=== PATIENT | male | born 1960 | race Caucasian/White ===

== ENCOUNTER 2023-07-07 18:47 | Inpatient (IN) | payer MEDICARE, MEDICAID ==
[~2023-07-07] VITALS: Ht 177.8 cm; Wt 90.0 kg
[2023-07-07 19:49] LABS: HEMATOCRIT 44.7 % (42.0-52.0); HEMOGLOBIN 15.2 g/dl (13.5-17.5); PLATELET COUNT, AUTOMATED 207 10^3/uL (150-450); RED BLOOD COUNT 4.91 10^6/uL (4.30-6.10); WHITE BLOOD COUNT 8.1 10^3/uL (4.0-10.0)
[2023-07-07 20:11] LABS: PHENCYCLIDINE URINE NEGATIVE (NEGATIVE)
[2023-07-07 20:12] LABS: AMPHETAMINES LEVEL URINE NEGATIVE (NEGATIVE); BARBITURATES URINE NEGATIVE (NEGATIVE); BENZODIAZEPINES URINE NEGATIVE (NEGATIVE); CANNABINOIDS URINE NEGATIVE (NEGATIVE); COCAINE METABOLITE URINE NEGATIVE (NEGATIVE); METHADONE URINE NEGATIVE (NEGATIVE); OPIATES URINE NEGATIVE (NEGATIVE)
[2023-07-07 20:13] LABS: ETHYL ALCOHOL (ETHANOL) < 0.003 % (0.000-0.010)
[2023-07-07 20:14] LABS: ACETAMINOPHEN LEVEL < 2.0 UG/ML (10.0-20.0); SALICYLATE LEVEL < 3.0 MG/DL (<30)
[2023-07-07 20:17] LABS: THYROID STIMULATING HORMONE 0.456 uIU/ML (0.55-4.78)
[2023-07-07 20:23] LABS: ALBUMIN 3.5 G/DL (3.2-5.2); ALKALINE PHOSPHATASE 129 U/L (46-116); ALT/SGPT 13 U/L (7.0-40); AST/SGOT < 8 U/L (<34); BILIRUBIN,DIRECT < 0.1 MG/DL (<0.4); BILIRUBIN,TOTAL 0.3 MG/DL (0.3-1.2); BLOOD UREA NITROGEN 13 MG/DL (9-23); CALCIUM LEVEL 9.1 MG/DL (8.3-10.6); CARBON DIOXIDE LEVEL 23 MMOL/L (20-31); CHLORIDE LEVEL 101 MMOL/L (98-107); CREATININE FOR GFR 0.63 MG/DL (0.70-1.30); GLOMERULAR FILTRATION RATE > 60.0 (>49); GLUCOSE, FASTING 428 MG/DL (74-106); POTASSIUM SERUM 4.3 MMOL/L (3.5-5.1); SODIUM LEVEL 134 MMOL/L (136-145); TOTAL PROTEIN 6.3 G/DL (5.7-8.2)
[2023-07-07] MEDS ORDERED: RISP-10 PO (20:55)
[2023-07-07] MEDS ORDERED: HOME MED LIST COMPLETE! XX SCH (20:55)
[2023-07-07] MEDS ORDERED: BENZ0.5T2 PO (20:55)
[2023-07-07] MEDS ORDERED: INSULIN LISPRO (NovoLOG) PER UNIT SC ONE (22:40)
[2023-07-07] MEDS ORDERED: MAALOX 30 ML SUSP *UDC PO PRN (22:45)
[2023-07-07] MEDS ORDERED: diphenhydrAMINE 25MG CAP PO PRN (22:45)
[2023-07-07] MEDS ORDERED: OLANZapine ORAL DISINTEGRATING TAB 5MG PO PRN (22:45)
[2023-07-07] MEDS ORDERED: traZODone 50 MG TAB PO PRN (22:45)
[2023-07-07] MEDS ORDERED: MOM 30ML SUSPENSION UDC PO PRN (22:45)
[2023-07-08] MEDS ORDERED: GLUCOSE 4GM CHEW TABLET PO PRN (00:45)
[2023-07-08] MEDS ORDERED: DEXTROSE 50% 50ML SYRINGE IV PRN (00:45)
[2023-07-08] MEDS ORDERED: GLUCAGON INJ 1MG VIAL SC PRN (00:45)
[2023-07-08 02:35] VITALS: BP 123/63; TEMP 98.3; O2SAT 96
[2023-07-08 06:20] VITALS: BP 141/76; TEMP 97.7; O2SAT 100
[2023-07-08] MEDS: INSULIN LISPRO (NovoLOG) PER UNIT SC SCH ×5 (06:35→21:25)
[2023-07-08] MEDS: NICOTINE 14 MG/24 HR TRANSDERMAL TD SCH (09:00)
[2023-07-08] MEDS: risperiDONE 3 MG TAB PO SCH ×2 (13:40→21:16)
[2023-07-08] MEDS: BENZTROPINE 0.5 MG TAB PO SCH ×2 (13:40→21:16)
[2023-07-08 15:13] VITALS: BP 126/68; TEMP 97.3; O2SAT 98
[2023-07-08] MEDS: lisinopriL 5 MG TAB PO SCH (15:16)
[2023-07-08] MEDS: ATORVASTATIN 20 MG TAB PO SCH (15:16)
[2023-07-08] MEDS: LEVEMIR (INSULIN DETEMIR) 1 UNITS/0.01ML SC SCH ×2 (15:17→21:24)
[2023-07-09 06:14] VITALS: BP 110/69; TEMP 97.9; O2SAT 99
[2023-07-09] MEDS: INSULIN LISPRO (NovoLOG) PER UNIT SC SCH ×7 (06:49→20:48)
[2023-07-09 08:01] LABS: CHOLESTEROL RISK RATIO 3.85 (<5); HDL CHOLESTEROL 50.9 MG/DL (>40); LDL CHOLESTEROL 121.9 MG/DL (<100); NON-HDL-C 145.1 MG/DL
[2023-07-09] MEDS: risperiDONE 3 MG TAB PO SCH ×2 (08:33→20:47)
[2023-07-09] MEDS: BENZTROPINE 0.5 MG TAB PO SCH ×2 (08:33→20:47)
[2023-07-09] MEDS: SITagliptin 50 MG TAB (JANUVIA) PO SCH (08:33)
[2023-07-09] MEDS: lisinopriL 5 MG TAB PO SCH (08:33)
[2023-07-09] MEDS: ATORVASTATIN 20 MG TAB PO SCH (08:33)
[2023-07-09] MEDS: LEVEMIR (INSULIN DETEMIR) 1 UNITS/0.01ML SC SCH ×2 (08:34→20:48)
[2023-07-09] MEDS: NICOTINE 14 MG/24 HR TRANSDERMAL TD SCH (08:40)
[2023-07-09 17:53] VITALS: BP 142/75; TEMP 97.2; O2SAT 95
[2023-07-09] MEDS: IBUPROFEN 400MG TAB PO PRN (21:33)
[2023-07-10 06:25] VITALS: BP 122/69; TEMP 98; O2SAT 99
[2023-07-10] MEDS: INSULIN LISPRO (NovoLOG) PER UNIT SC SCH ×5 (07:01→19:58)
[2023-07-10] MEDS: NICOTINE 14 MG/24 HR TRANSDERMAL TD SCH (08:00)
[2023-07-10 08:02] VITALS: BP 123/66
[2023-07-10] MEDS: lisinopriL 5 MG TAB PO SCH (08:04)
[2023-07-10] MEDS: BENZTROPINE 0.5 MG TAB PO SCH ×2 (08:04→20:00)
[2023-07-10] MEDS: risperiDONE 3 MG TAB PO SCH ×2 (08:04→20:00)
[2023-07-10] MEDS: SITagliptin 50 MG TAB (JANUVIA) PO SCH (08:04)
[2023-07-10] MEDS: ATORVASTATIN 20 MG TAB PO SCH (08:04)
[2023-07-10] MEDS: LEVEMIR (INSULIN DETEMIR) 1 UNITS/0.01ML SC SCH ×2 (08:06→20:00)
[2023-07-10] MEDS: DAPAGLIFLOZIN PROPANEDIOL 10MG TABLET (FARXIGA) PO SCH (12:19)
[2023-07-10] MEDS: glipiZIDE (GLUCOTROL) 5 MG TAB PO SCH (17:20)
[2023-07-10 19:02] VITALS: BP 107/67; TEMP 97.1
[2023-07-10] MEDS: IBUPROFEN 400MG TAB PO PRN (22:43)
[2023-07-11] MEDS: INSULIN LISPRO (NovoLOG) PER UNIT SC SCH ×4 (06:52→20:21)
[2023-07-11] MEDS: glipiZIDE (GLUCOTROL) 5 MG TAB PO SCH ×2 (06:52→16:39)
[2023-07-11 06:55] VITALS: BP 130/68; TEMP 97.2; O2SAT 95
[2023-07-11] MEDS: NICOTINE 14 MG/24 HR TRANSDERMAL TD SCH (08:30)
[2023-07-11] MEDS: ATORVASTATIN 20 MG TAB PO SCH (08:37)
[2023-07-11] MEDS: BENZTROPINE 0.5 MG TAB PO SCH ×2 (08:37→20:22)
[2023-07-11] MEDS: risperiDONE 3 MG TAB PO SCH ×2 (08:38→20:22)
[2023-07-11] MEDS: DAPAGLIFLOZIN PROPANEDIOL 10MG TABLET (FARXIGA) PO SCH (08:38)
[2023-07-11] MEDS: SITagliptin 50 MG TAB (JANUVIA) PO SCH (08:38)
[2023-07-11] MEDS: lisinopriL 5 MG TAB PO SCH (08:38)
[2023-07-11] MEDS: LEVEMIR (INSULIN DETEMIR) 1 UNITS/0.01ML SC SCH ×2 (08:39→20:21)
[2023-07-11] MEDS: IBUPROFEN 400MG TAB PO PRN ×2 (08:52→19:12)
[2023-07-11] MEDS ORDERED: PALIPERIDONE PAL 234MG/1.5ML INJ (INVEGA)(FREE PSY INPT ONLY) IM ONE (09:00)
[2023-07-11 18:08] VITALS: BP 103/59; TEMP 96.9; O2SAT 100
[2023-07-11] MEDS: ACETAMINOPHEN TAB 650MG DOSE (2X325MG) PO PRN (21:22)
[2023-07-12] MEDS: glipiZIDE (GLUCOTROL) 5 MG TAB PO SCH ×2 (06:33→16:39)
[2023-07-12] MEDS: INSULIN LISPRO (NovoLOG) PER UNIT SC SCH ×4 (06:34→20:03)
[2023-07-12 06:39] VITALS: BP 134/75; TEMP 97; O2SAT 94
[2023-07-12] MEDS: risperiDONE 3 MG TAB PO SCH ×2 (08:52→20:07)
[2023-07-12] MEDS: DAPAGLIFLOZIN PROPANEDIOL 10MG TABLET (FARXIGA) PO SCH (08:52)
[2023-07-12] MEDS: lisinopriL 5 MG TAB PO SCH (08:52)
[2023-07-12] MEDS: BENZTROPINE 0.5 MG TAB PO SCH ×2 (08:52→20:07)
[2023-07-12] MEDS: ATORVASTATIN 20 MG TAB PO SCH (08:52)
[2023-07-12] MEDS: IBUPROFEN 400MG TAB PO PRN ×2 (08:53→20:09)
[2023-07-12] MEDS: SITagliptin 50 MG TAB (JANUVIA) PO SCH (08:53)
[2023-07-12] MEDS: LEVEMIR (INSULIN DETEMIR) 1 UNITS/0.01ML SC SCH ×2 (08:53→20:07)
[2023-07-12] MEDS: NICOTINE 14 MG/24 HR TRANSDERMAL TD SCH (08:54)
[2023-07-12] MEDS: ACETAMINOPHEN TAB 650MG DOSE (2X325MG) PO PRN (16:00)
[2023-07-12] MEDS: LIDOCAINE 5% (LIDODERM) PATCH TD SCH (16:42)
[2023-07-12 18:45] VITALS: BP 134/73; TEMP 98.4; O2SAT 100
[2023-07-13 06:41] VITALS: BP 117/72; TEMP 98.3; O2SAT 98
[2023-07-13] MEDS: glipiZIDE (GLUCOTROL) 5 MG TAB PO SCH ×2 (06:42→17:06)
[2023-07-13] MEDS: INSULIN LISPRO (NovoLOG) PER UNIT SC SCH ×4 (06:43→20:37)
[2023-07-13] MEDS: NICOTINE 14 MG/24 HR TRANSDERMAL TD SCH (08:33)
[2023-07-13] MEDS: SITagliptin 50 MG TAB (JANUVIA) PO SCH (08:38)
[2023-07-13] MEDS: ATORVASTATIN 20 MG TAB PO SCH (08:38)
[2023-07-13] MEDS: DAPAGLIFLOZIN PROPANEDIOL 10MG TABLET (FARXIGA) PO SCH (08:38)
[2023-07-13] MEDS: lisinopriL 5 MG TAB PO SCH (08:38)
[2023-07-13] MEDS: risperiDONE 3 MG TAB PO SCH ×2 (08:38→20:36)
[2023-07-13] MEDS: LIDOCAINE 5% (LIDODERM) PATCH TD SCH (08:38)
[2023-07-13] MEDS: BENZTROPINE 0.5 MG TAB PO SCH ×2 (08:39→20:36)
[2023-07-13] MEDS: LEVEMIR (INSULIN DETEMIR) 1 UNITS/0.01ML SC SCH ×2 (08:39→20:37)
[2023-07-13 17:12] VITALS: BP 121/71; TEMP 97.5
[2023-07-14] MEDS: INSULIN LISPRO (NovoLOG) PER UNIT SC SCH ×4 (06:35→19:34)
[2023-07-14] MEDS: glipiZIDE (GLUCOTROL) 5 MG TAB PO SCH ×2 (06:40→16:48)
[2023-07-14 06:44] VITALS: BP 128/80; TEMP 97.2; O2SAT 99
[2023-07-14] MEDS: NICOTINE 14 MG/24 HR TRANSDERMAL TD SCH (09:00)
[2023-07-14] MEDS: DAPAGLIFLOZIN PROPANEDIOL 10MG TABLET (FARXIGA) PO SCH (09:10)
[2023-07-14] MEDS: LIDOCAINE 5% (LIDODERM) PATCH TD SCH (09:10)
[2023-07-14] MEDS: BENZTROPINE 0.5 MG TAB PO SCH ×2 (09:10→19:34)
[2023-07-14] MEDS: SITagliptin 50 MG TAB (JANUVIA) PO SCH (09:10)
[2023-07-14] MEDS: lisinopriL 5 MG TAB PO SCH (09:10)
[2023-07-14] MEDS: ATORVASTATIN 20 MG TAB PO SCH (09:10)
[2023-07-14] MEDS: risperiDONE 3 MG TAB PO SCH ×2 (09:10→19:34)
[2023-07-14] MEDS: LEVEMIR (INSULIN DETEMIR) 1 UNITS/0.01ML SC SCH (09:11)
[2023-07-14 15:23] VITALS: BP 132/70; TEMP 97.5; O2SAT 95
[2023-07-14] MEDS: ACETAMINOPHEN TAB 650MG DOSE (2X325MG) PO PRN (20:16)
[2023-07-15] MEDS: INSULIN LISPRO (NovoLOG) PER UNIT SC SCH ×2 (06:26→12:00)
[2023-07-15 06:57] VITALS: BP 126/82; TEMP 97.6
[2023-07-15] MEDS: glipiZIDE (GLUCOTROL) 5 MG TAB PO SCH (08:16)
[2023-07-15] MEDS: DAPAGLIFLOZIN PROPANEDIOL 10MG TABLET (FARXIGA) PO SCH (08:27)
[2023-07-15] MEDS: LEVEMIR (INSULIN DETEMIR) 1 UNITS/0.01ML SC SCH (08:27)
[2023-07-15] MEDS: BENZTROPINE 0.5 MG TAB PO SCH (08:27)
[2023-07-15] MEDS: risperiDONE 3 MG TAB PO SCH (08:28)
[2023-07-15] MEDS: SITagliptin 50 MG TAB (JANUVIA) PO SCH (08:28)
[2023-07-15] MEDS: ATORVASTATIN 20 MG TAB PO SCH (08:28)
[2023-07-15 08:30] VITALS: BP 130/78
[2023-07-15] MEDS: lisinopriL 5 MG TAB PO SCH (08:30)
[2023-07-15] MEDS: LIDOCAINE 5% (LIDODERM) PATCH TD SCH (08:31)
[2023-07-15] MEDS: NICOTINE 14 MG/24 HR TRANSDERMAL TD SCH (08:31)
[2023-07-15] MEDS ORDERED: PALIPERIDONE PAL 156MG/1ML INJ(INVEGA)(FREE PSY INPT ONLY) IM ONE (09:00)
[2023-07-15] MEDS ORDERED: ATOR1TAB21 PO (09:14)
[2023-07-15] MEDS ORDERED: BENZ0.5T2 PO (09:14)
[2023-07-15] MEDS ORDERED: FARX1TAB3 PO (09:14)
[2023-07-15] MEDS ORDERED: GLIP5TAB8 PO (09:14)
[2023-07-15] MEDS ORDERED: SITA50TAB PO (09:14)
[2023-07-15] MEDS ORDERED: INSUDET SC (09:14)
[2023-07-15] MEDS ORDERED: LISI5TAB11 PO (09:14)
[2023-07-15] MEDS ORDERED: INVE234I IM (09:16)
== END 2023-07-15 12:02 | disposition home or self-care (01) | DRG 885 ==
LOC: M ED 18:47 → M ED INP 22:45 → M PSY 07-08 02:06
PROVIDERS: ADMIT Student in an Organized Health Care Education/Training Program; ATTEND Student in an Organized Health Care Education/Training Program
DX: F20.0 Paranoid schizophrenia (principal); Z79.899 Other long term (current) drug therapy; F17.200 Nicotine dependence, unspecified, uncomplicated; I10 Essential (primary) hypertension; E11.9 Type 2 diabetes mellitus without complications; E78.5 Hyperlipidemia, unspecified; Z91.128 Patient's intentional underdosing of medication regimen for other reason; Z88.8 Allergy status to other drugs, medicaments and biological substances